=== PATIENT | male | born 1965 | race Caucasian/White ===

== ENCOUNTER 2018-06-19 16:22 | Emergency (ER) | payer OTHER ==
--- NOTE | 2018-06-19 16:27 | ERPHSYRPT ---
- History of Present Illness Time Seen by Provider: 06/19/18 16:27 Source: patient, family Exam Limitations: no limitations Physician History: 52 y/o white male with h/o htn, dm and seizure d/o. pts oxacarbazepine dosage was increased by neurologist 1 week ago. pts sx of dizziness, double vision, decreased visual acuity, loss of balance and tremors have increased. pt was seen at [facility] less than 24 hours ago. complete work up reviewed including ct scan head. no acute findings. Timing/Duration: week(s) (1) Severity: mild Character of Deficits: vision problems Deficits: no difficulties Baseline/Normal Cognition: alert oriented x 3 Current Cognition: alert oriented x 3 Baseline Gait: walks w/o assistance Associated Symptoms: vision changes Allergies/Adverse Reactions: aspirin Allergy (Mild, Verified 06/19/18 16:37) Nausea PT STATES "IT QUEZADA MY STOMACHE" Home Medications: Albuterol 2.5 mg/3 ml Neb [Proventil 2.5 mg/3 ml Neb] 3 ml IH Q6H [History] Albuterol 8 gm Mdi Hfa [Ventolin Hfa MDI] 2 puff IH Q6H 06/09/14 [History] Budesonide [Pulmicort Flexhaler] 2 puffs IH BID 06/09/14 [History] Buspirone HCl [Buspar] 10 mg PO BID 06/09/14 [History] Docusate Sodium [Stool Softener] 1 cap PO BID 06/09/14 [History] Gabapentin 300 mg PO 5XD 06/09/14 [History] Hydrocortisone 1% Cream [Cortisone 1% Cream] 1 applic TOP DAILY 06/09/14 [ History] Levothyroxine Sodium 88 Mcg [Synthroid 88 Mcg] 88 mcg PO DAILY 06/09/14 [ History] Simvastatin [Zocor] 2.5 mg PO DAILY 06/09/14 [History] Terazosin HCl 5 mg [Hytrin 5Mg] 5 mg PO HS 06/09/14 [History] Cetirizine HCl [Zyrtec] 10 mg PO DAILY 11/13/17 [History] Mirabegron [Myrbetriq] 50 mg PO DAILY 11/13/17 [History] Mvit,Calcium,Iron,Mins/A.acids [K-Sidney Double Strength Capsule] 1 each PO DAILY 11/13/17 [History] [place]-3/Dha/Epa/Fish Oil [Fish Oil 1,000 mg Softgel] 1,000 mg PO DAILY 11/13/17 [History] Omeprazole 20 MG [Prilosec 20 mg] 20 mg PO DAILY 11/13/17 [History] Sildenafil Citrate [Viagra] 100 mg PO DAILY 11/13/17 [History] Lacosamide [Vimpat] 50 mg BID 06/19/18 [History] OXcarbazepine [Oxcarbazepine] 600 mg QID 06/19/18 [History] Hx Tetanus, Diphtheria Vaccination/Date Given: Yes Hx Influenza Vaccination/Date Given: No Hx Pneumococcal Vaccination/Date Given: No - Review of Systems Constitutional: No Symptoms Eyes: Vision Changes, Double Vision Ears, Nose, & Throat: No Symptoms Respiratory: No Symptoms Cardiac: No Symptoms Abdominal/Gastrointestinal: No Symptoms Genitourinary Symptoms: No Symptoms Musculoskeletal: No Symptoms Neurological: Dizziness Psychological: No Symptoms Endocrine: No Symptoms Hematologic/Lymphatic: No Symptoms Immunological/Allergic: No Symptoms All Other Systems: Reviewed and Negative - Past Medical History Pertinent Past Medical History: Yes Neurological History: No Pertinent History ENT History: No Pertinent History Cardiac History: Hypertension, Other Respiratory History: Asthma, Bronchitis Endocrine Medical History: Diabetes Type II Musculoskeletal History: No Pertinent History GI Medical History: No Pertinent History History: No Pertinent History Psycho-Social History: Anxiety, Depression Male Reproductive Disorders: No Pertinent History Other Medical History: MOUTH CANCER - Past Surgical History Past Surgical History: Yes Neuro Surgical History: No Pertinent History Cardiac: No Pertinent History Respiratory: No Pertinent History Gastrointestinal: No Pertinent History Genitourinary: No Pertinent History Musculoskeletal: No Pertinent History Male Surgical History: No Pertinent History Other Surgical History: STOMA, 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 - Social History Smoking Status: Never smoker Exposure to second hand smoke: No Drug Use: none Patient Lives Alone: No - Nursing Vital Signs Nursing Vital Signs: Initial Vital Signs Temperature 98.1 F 06/19/18 16:29 Pulse Rate 90 06/19/18 16:29 Respiratory Rate 16 06/19/18 16:29 Blood Pressure 166/106 06/19/18 16:29 O2 Sat by Pulse Oximetry 95 06/19/18 16:29 Pain Scale Pain Intensity 0 - Rachael Coma Scale Best Eye Response ([place]): (4) open spontaneously Best Verbal Response ([place]): (5) oriented Best Motor Response ([place]): (6) obeys commands Rachael Total: 15 - Physical Exam General Appearance: no apparent distress, alert, anxiety Eye Exam: bilateral eye: normal inspection, PERRL, EOMI Ears, Nose, Throat Exam: normal ENT inspection, moist mucous membranes Neck Exam: normal inspection, non-tender, supple, full range of motion Respiratory: normal breath sounds, lungs clear, airway intact, No chest tenderness, No respiratory distress, No accessory muscle use, No rhonchi, No wheezing, No stridor Cardiovascular: regular rate/rhythm, normal heart sounds, normal peripheral pulses Gastrointestinal: soft, normal bowel sounds, No tenderness, No guarding, No rebound Rectal Exam: not done Back Exam: normal inspection, normal range of motion, No CVA tenderness, No vertebral tenderness Extremity Exam: normal inspection, normal range of motion, pelvis stable claims adjuster crop Exam: normal hearing, normal speech Coordination/Gait: normal finger to nose, normal gait, normal cerebellar function Motor/Sensory: no motor deficit, no sensory deficit, no pronator drift Skin Exam: normal color, warm, dry SpO2 Interpretation: normal Oxygen Delivery: Room Air - Progress Progress: unchanged Counseled pt/family regarding: diagnosis, need for follow-up - Departure Time of Disposition: 17:08 Departure Disposition: Home Clinical Impression: Medication reaction Condition: Stable Critical Care Time: No Referrals: RUKHSANA ONEILL [Primary Care Provider] - Additional Instructions: hold oxycarbazine medication tonight. keep your appointment for blood work tomorrow morning. call your neurologist in the morning.
[2018-06-19 16:37] VITALS: O2SAT 95
[2018-06-19 17:22] VITALS: BP 137/103; PULSE 89
== END 2018-06-19 17:22 | disposition home or self-care (01) ==
LOC: ED 16:22
DX: T50.905A Adverse effect of unspecified drugs, medicaments and biological substances, initial encounter (principal); R42 Dizziness and giddiness; Z79.899 Other long term (current) drug therapy; E11.9 Type 2 diabetes mellitus without complications
CPT/HCPCS: 82962; 99283